=== PATIENT | male | born 1950 | race Caucasian/White ===

== ENCOUNTER 2016-07-04 10:52 | Day surgery (SDC) | payer OTHER ==
[~2016-07-04 10:52] MED LIST: LACTATED RINGERS 1,000 ML IV.SOLN IV ONE; LIDOCAINE HCL/PF 2% 100 MG/5 ML VIAL IJ ONE; PROPOFOL 200 MG/20 ML VIAL IV ONE; SALINE FLUSH 10 ML DISP.SYRIN IVF ONE
--- NOTE | 2016-07-05 13:55 | GI Report ---
REFERRING PHYSICIAN: Dr. Darcy Leiva CAR SALTER: Ra Billy MD PROCEDURE MEDICATION: Propofol as per anesthesia. HISTORY: Patient is a 66-year-old man who has had polyps on previous colonoscopies. He is referred for a follow up. He is 5 feet 6 inches tall and weighs 100 kilograms and carries that weight centrally. His mother has had colon cancer he thinks over the age of 60. He has also had a previous cholecystectomy. PROCEDURE PERFORMED: Colonoscopy with polypectomy. PROCEDURE: An Olympus video colonoscope was advanced into the rectum. 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 Appendiceal orifice and terminal ileum were normal. Cecum, ascending colon, and transverse colon with no obvious intraluminal lesions were noted. In the descending colon at 60 cm, the patient had a 3 to 4 mm polyp removed with electrocautery and submitted to pathology. He does have diverticular disease in the sigmoid colon. Retroflexion of the rectum was normal. FINDINGS: 1. Colon polyp removed from the descending colon. 2. Diverticular disease of the colon. 3. Central obesity. 4. Some sleep apnea. RECOMMENDATIONS: 1. Pending the pathology of the polyp, consider re-looking at his colon in 5 years. 2. Increase fiber in the diet such as using Metamucil or Citrucel. 3. Weight loss would be beneficial. cc: Dr. Darcy RENAE
== END 2016-07-04 10:53 ==
LOC: OPSURG 10:52
PROVIDERS: ATTEND Internal Medicine Gastroenterology
DX: Z86.010 Personal history of colon polyps (principal); D12.4 Benign neoplasm of descending colon; K57.30 Diverticulosis of large intestine without perforation or abscess without bleeding; E66.9 Obesity, unspecified
CPT/HCPCS: 45385; J2001; J2704; J7120; S1016

== ENCOUNTER 2017-01-24 08:47 | Outpatient (CLI) | payer OTHER ==
[2017-01-24 11:11] LABS: eGFR (African) > 60; eGFR (Non-African) > 60
== END 2017-01-24 08:50 ==
LOC: LAB 08:47
PROVIDERS: ATTEND Family Medicine
DX: Z00.00 Encounter for general adult medical examination without abnormal findings (principal)
CPT/HCPCS: 36415; 80053; 80061

== ENCOUNTER 2019-01-10 10:14 | Outpatient (CLI) | payer MEDICARE ==
[2019-01-10 10:58] LABS: HDL 37 mg/dL (>40); eGFR (Non-African) > 60
== END 2019-01-10 10:16 ==
LOC: LAB 10:14
PROVIDERS: ATTEND Family Medicine
DX: Z13.6 Encounter for screening for cardiovascular disorders (principal)
CPT/HCPCS: 36415; 80053; 80061; 84153